=== PATIENT | female | born 1965 | race African-American/Black ===

== ENCOUNTER 2017-05-14 18:45 | Emergency (ER) | payer MEDICARE, MEDICAID ==
[~2017-05-14] VITALS: Ht 168.9 cm; Wt 95.5 kg
[~2017-05-14 18:45] MED LIST: NAPROXEN; PAXIL PO
[2017-05-14] MEDS ORDERED: ONDANSETRON HCL 4MG/2ML VIAL IV STA (19:54)
[2017-05-14] MEDS ORDERED: SODIUM CHLORIDE 0.9% 1,000 ML IV ONE (19:54)
[2017-05-14] MEDS ORDERED: KETOROLAC 30MG/ML VIAL IV STA (19:54)
[2017-05-14] MEDS ORDERED: ASPIRIN 81MG TABLET PO ONE (20:00)
[2017-05-14 20:36] LABS: BASOPHILS % 0.8 % (0.0-2.0); EOSINOPHILS % 0.9 % (0.0-5.0); HEMATOCRIT. 39.3 % (36.0-48.0); LYMPHOCYTES % 38.6 % (20.0-50.0); MEAN CORPUSCULAR HEMOGLOBIN 28.5 pg (28.0-32.0); MEAN PLATELET VOLUME 7.5 fl (7.4-10.4); MONOCYTES % 10.4 % (2.0-8.0); NEUTROPHILS % 49.3 % (40.0-76.0); PLATELET 313 x1000/uL (130-400); RED BLOOD CELL COUNT 4.57 mill/uL (4.2-5.4); RED CELL DISTRIBUTION WIDTH 13.3 % (11.6-14.6)
[2017-05-14 20:42] LABS: PROTHROMBIN TIME 10.1 sec (9.4-11.6)
[2017-05-14 20:45] LABS: CARBON DIOXIDE 30 mEq/L (21-32); CHLORIDE 104 mEq/L (98-107)
[2017-05-14 20:51] LABS: TROPONIN I < 0.02 ng/mL (0.00-0.04)
[2017-05-14 23:49] VITALS: BP 110/54
== END 2017-05-14 23:59 | disposition home or self-care (01) ==
LOC: ER 18:48
DX: K80.50 Calculus of bile duct without cholangitis or cholecystitis without obstruction (principal); R07.89 Other chest pain; E78.00 Pure hypercholesterolemia, unspecified; F17.210 Nicotine dependence, cigarettes, uncomplicated; Z90.710 Acquired absence of both cervix and uterus; Z88.1 Allergy status to other antibiotic agents; Z88.8 Allergy status to other drugs, medicaments and biological substances
CPT/HCPCS: 36415; 71010; 76705; 80053; 83690; 83880; 84484; 85025; 85610; 93005; 96361; 96374; 96375; 99285; J1885; J2405; J7030